=== PATIENT | female | born 1975 | race Caucasian/White ===

== ENCOUNTER 2021-11-06 13:41 | Outpatient (CLI) | payer BC, SELFPAY ==
[2021-11-06 16:47] LABS: Chloride* 102 mmol/L (96-114); Potassium* 4.9 mmol/L (3.6-5.1); Sodium* 137 mmol/L (135-149)
[2021-11-06 16:50] LABS: Blood Urea Nitrogen* 9 mg/dL (5-24); Carbon Dioxide* 26 mmol/L (20-32); Creatinine* 0.6 mg/dL (0.5-1.5); Estimated Glomerular Filt Rate 111 ml/min; Glucose* 97 mg/dL (60-115)
[2021-11-06 16:51] LABS: Calcium* 9.1 mg/dL (8.4-10.6)
[2021-11-06 17:09] LABS: Vitamin D 25 Hydroxy* 36 ng/mL (30-80)
[2021-11-06 17:27] LABS: Ferritin* 6.4 ng/mL (6.24-137.0)
== END 2021-11-06 13:42 | disposition home or self-care (01) ==
PROVIDERS: PCP Family Medicine; Visit Provider Family Medicine
DX: Z01.419 Encounter for gynecological examination (general) (routine) without abnormal findings (principal); D50.9 Iron deficiency anemia, unspecified; I42.2 Other hypertrophic cardiomyopathy; E55.9 Vitamin D deficiency, unspecified; R07.89 Other chest pain
CPT/HCPCS: 80048; 82306; 82728

== ENCOUNTER 2022-03-30 17:28 | Outpatient (CLI) | payer BC, SELFPAY ==
--- NOTE | 2022-03-30 18:00 | CRLHL7_ITS ---
For Patients: As a result of the Century Cures Act, medical imaging exams and procedure reports are released immediately into your electronic medical record. You may view this report before your referring provider. If you have questions, please contact your health care provider. BILATERAL DIGITAL SCREENING MAMMOGRAM WITH TOMOSYNTHESIS AND COMPUTER-AIDED DETECTION CLINICAL HISTORY: Routine screening exam. COMPARISON: 09/04/2027, 03/26/2014. TECHNIQUE: Digital mammogram in CC and MLO projections including computer-aided detection (CAD). Tomosynthesis utilized. BREAST COMPOSITION: There are areas of scattered fibroglandular density. FINDINGS: RIGHT Breast: No suspicious findings. LEFT Breast: Focal asymmetric density within the lower LEFT breast 5 cm from the nipple, 6 o`clock. IMPRESSION: LEFT breast asymmetry/mass. RECOMMENDATIONS: Additional mammographic views of the LEFT breast including 3D spot compression CC/MLO. LEFT breast ultrasound may also be required. BI-RADS Category 0: Incomplete: Need Additional Imaging Evaluation and/or Prior Mammograms for Comparison The [facility] will contact the patient for follow-up. A lay language report of this examination will be provided to the patient. Dictated by Brice Jackson MD @ 03/31/2022 12:41:49 PM cliftonj/Dictated by: Brice Jackson MD @ 03/31/2022 12:42:00 PM (Electronically Signed)
== END 2022-03-30 17:29 | disposition home or self-care (01) ==
LOC: MAMMO 17:28
PROVIDERS: PCP Family Medicine; Visit Provider Family Medicine
DX: Z12.31 Encounter for screening mammogram for malignant neoplasm of breast (principal); N63.20 Unspecified lump in the left breast, unspecified quadrant
CPT/HCPCS: 77063; 77067

== ENCOUNTER 2022-04-09 08:34 | Outpatient (CLI) | payer BC, SELFPAY ==
--- NOTE | 2022-04-09 08:45 | CRLHL7_ITS ---
For Patients: As a result of the Cures Act, medical imaging exams and procedure reports are released immediately into your electronic medical record. You may view this report before your referring provider. If you have questions, please contact your health care provider. DIGITAL DIAGNOSTIC LEFT MAMMOGRAM USING TOMOSYNTHESIS AND COMPUTER-AIDED DETECTION LEFT BREAST ULTRASOUND CLINICAL HISTORY: LEFT breast mass/asymmetry. COMPARISON: 03/30/2022. TECHNIQUE: Digital LEFT mammogram in two projections. Tomosynthesis and CAD utilized. Real-time ultrasound imaging of LEFT breast with imaging documentation. BREAST COMPOSITION: There are areas of scattered fibroglandular density. FINDINGS: 3D spot compression CC/MLO LEFT breast mammogram images submitted. Decreased conspicuity of previously noted asymmetric density compared to the screening examination. Postreduction mammoplasty changes are present. No architectural distortion. Targeted LEFT breast ultrasound at 6 o`clock 7 cm from the nipple performed. Mild scar tissue is present. No suspicious masses or fibrocystic changes. IMPRESSION: No evidence of malignancy. RECOMMENDATIONS: Annual BILATERAL screening mammography. Results and recommendations discussed with the patient. BI-RADS Category 2: Benign A lay language report of this examination will be provided to the patient. Dictated by Brice Jackson MD @ 04/09/2022 11:26:02 AM jj/Dictated by: Brice Jackson MD @ 04/09/2022 11:26:00 AM (Electronically Signed)
--- NOTE | 2022-04-09 09:15 | CRLHL7_ITS ---
For Patients: As a result of the Cures Act, medical imaging exams and procedure reports are released immediately into your electronic medical record. You may view this report before your referring provider. If you have questions, please contact your health care provider. PLEASE SEE DIGITAL DIAGNOSTIC LEFT MAMMOGRAM PERFORMED SAME DAY CRL:colleen macias/Dictated by: Brice Jackson MD @ 04/09/2022 11:23:00 AM (Electronically Signed)
== END 2022-04-09 08:35 | disposition home or self-care (01) ==
LOC: MAMMO 08:35
PROVIDERS: PCP Family Medicine; Visit Provider Family Medicine
DX: N63.20 Unspecified lump in the left breast, unspecified quadrant (principal); R92.8 Other abnormal and inconclusive findings on diagnostic imaging of breast
CPT/HCPCS: 76642; 77065; G0279

== ENCOUNTER 2023-02-09 09:35 | Outpatient (CLI) | payer BC, SELFPAY ==
--- NOTE | 2023-02-15 11:56 | ONC.NURNOTE ---
Dx: Iron deficiency anemia
== END 2023-02-09 09:36 | disposition home or self-care (01) ==
PROVIDERS: PCP Family Medicine; Visit Provider Family Medicine
DX: E78.2 Mixed hyperlipidemia (principal); D50.9 Iron deficiency anemia, unspecified; E55.9 Vitamin D deficiency, unspecified; R53.83 Other fatigue; N95.1 Menopausal and female climacteric states
CPT/HCPCS: 80048; 82306; 82728; 83001; 83002; 84443; 85025

== ENCOUNTER 2023-03-04 06:51 | Outpatient (CLI) | payer BC, SELFPAY ==
--- NOTE | 2023-03-04 08:35 | W.ANESCHARGE ---
Anesthesia Charges Start Date/Time Anesthesia Start Date: 03/04/23 Anesthesia Start Time: 07:55 Stop Date/Time Anesthesia Stop Date: 03/04/23 Anesthesia Stop Time: 08:31
--- NOTE | 2023-03-04 09:31 | W.ANESCHARGE ---
Anesthesia Charges Start Date/Time Anesthesia Start Date: 03/04/23 Anesthesia Start Time: 07:55 Stop Date/Time Anesthesia Stop Date: 03/04/23 Anesthesia Stop Time: 08:31
== END 2023-03-04 06:52 | disposition home or self-care (01) ==
LOC: OP CLINIC 06:53
PROVIDERS: PCP Family Medicine; Visit Provider Internal Medicine
DX: K64.8 Other hemorrhoids (principal); K59.09 Other constipation; R10.13 Epigastric pain; K21.9 Gastro-esophageal reflux disease without esophagitis; Z98.84 Bariatric surgery status; D50.9 Iron deficiency anemia, unspecified
CPT/HCPCS: 00813; 43239; 45378; 88305; J2704

== ENCOUNTER 2023-03-04 09:30 | Outpatient (RCR) | payer BC, SELFPAY ==
--- NOTE | 2023-02-16 09:47 | URNOTE ---
Request received for authorization for?Injectafer ([id number]). Prior authorization is not required per [facility], Ref# [id number] date range: 02-15-2023 to 03-29-2023.
[2023-02-23] MEDS: FERRIC CARBOXYMALTOSE 750 MG in 0.9 % SODIUM CHLORIDE 250 ml 250 ML 1060 MG IVPB (09:41)
[2023-02-23 10:03] VITALS: BP 114/72
[2023-03-04 09:32] VITALS: BP 110/72; PULSE 63; RESP 16; TEMP 35.8; O2SAT 100
[2023-03-04] MEDS: SODIUM CHLORIDE 0.9 % (FLUSH) 10 ML SYRINGE IVF (09:43)
[2023-03-04] MEDS: 0.9 % SODIUM CHLORIDE 250 ml IV (09:43)
[2023-03-04] MEDS: FERRIC CARBOXYMALTOSE 750 MG in 0.9 % SODIUM CHLORIDE 250 ml 250 ML 1060 MG IVPB (10:10)
[2023-03-04 10:27] VITALS: BP 100/67; PULSE 78; RESP 18; TEMP 36.2; O2SAT 98
[2023-03-04 10:56] VITALS: BP 116/80; PULSE 71; RESP 16; O2SAT 97
== END 2023-08-22 23:59 | disposition home or self-care (01) ==
LOC: CCIC 09:30
PROVIDERS: PCP Family Medicine; Referring Provider Family Medicine; Visit Provider Family Medicine
DX: D50.9 Iron deficiency anemia, unspecified (principal)
CPT/HCPCS: 96374; J1439; J7050

== ENCOUNTER 2023-05-14 19:43 | Emergency (ER) | payer BC, SELFPAY ==
[2023-05-14 19:50] VITALS: BP 121/79; PULSE 82; RESP 18; TEMP 36.7; O2SAT 99; BMI 29.3
--- NOTE | 2023-05-14 20:01 | ED_ITS ---
HPI - General Adult General Chief complaint: Back Injury/Pain Stated complaint: Low back pain- Time Seen by Provider: 05/14/23 19:51 Source: patient Mode of arrival: ambulatory Limitations: no limitations History of Present Illness HPI narrative: 47-year-old female coming in today complaining of low back pain going on for approximately 3-4 days. Pain is located in the right lower back and sometimes radiates across the entire lower back. Does not radiate down her legs. She denies any loss of bowel or bladder function. She denies any fevers or chills. No nausea or vomiting. She denies any injury to her back. She states that sitting lying down makes it better, any movement makes it worse. She denies difficulty urinating, no blood in her urine. No increased frequency urgency. Related Data Home Medications Medication Instructions Recorded Confirmed fluticasone propionate 50 1 spray intranasal DAILY 02/08/23 05/14/23 mcg/actuation nasal spray,suspension cyanocobalamin (vitamin B-12) 1,000 mcg IM Q2W 03/04/23 05/14/23 1,000 mcg/mL injection solution ergocalciferol (vitamin D2) 1,250 50,000 unit PO QWEEK 03/04/23 05/14/23 mcg (50,000 unit) capsule Previous Rx's Medication Instructions Recorded omeprazole 20 mg capsule,delayed 20 mg PO QDAY #30 caps 01/27/22 release sennosides 8.6 mg-docusate sodium 2 tab-cap (2 x 8.6-50 mg) PO QHS 02/11/23 50 mg tablet (Senna-S) #60 tabs bupropion HCl 300 mg 24 hr tablet, 300 mg PO QAM #30 tabs 04/12/23 extended release (Wellbutrin XL) fluoxetine 20 mg capsule (Prozac) 20 mg PO QDAY #30 caps 04/12/23 sumatriptan succinate 100 mg 50 - 100 mg (0.5 - 1 x 100 mg) PO 05/12/23 tablet (Imitrex) Q2H PRN migraine headache #10 tabs cyclobenzaprine 10 mg tablet 10 mg PO TID PRN muscle spasm #7 05/14/23 tabs methylprednisolone 4 mg tablets in See Rx Instructions PO .COMPLEX 05/14/23 a dose pack (Medrol (Carlos)) #21 ea Allergies Allergy/AdvReac Type Severity Reaction Status Date / Time benztropine Allergy Severe Hallucinati Verified 05/14/23 19:53 ng cephalexin Allergy Severe Anaphylaxis Verified 05/14/23 19:53 Penicillins Allergy Severe Hives Verified 05/14/23 19:53 Sulfa (Sulfonamide Allergy Severe tachycardia Verified 05/14/23 19:53 Antibiotics) ropinirole Allergy Intermediate emesis Verified 05/14/23 19:53 levofloxacin AdvReac Unknown Verified 05/14/23 19:53 NSAIDS (Non-Steroidal AdvReac Unknown Verified 05/14/23 19:53 Anti-Inflamma Review of Systems Status of ROS: Reports: 10 or more systems reviewed and unremarkable except as noted in History and below [facility] Medical History Major depression, recurrent ?F33.9 - Major depressive disorder, recurrent, unspecified (ICD-10) Migraine without aura ?G43.009 - Migraine without aura, not intractable, without status migrainosus (ICD-10) Vitamin D deficiency ?E55.9 - Vitamin D deficiency, unspecified (ICD-10) Severe benzodiazepine use disorder (04/28/15) ?F13.20 - Sedative, hypnotic or anxiolytic dependence, uncomplicated (ICD-10) Restless legs syndrome ?G25.81 - Restless legs syndrome (ICD-10) Polycystic ovary syndrome ?E28.2 - Polycystic ovarian syndrome (ICD-10) Obstructive sleep apnea syndrome ?G47.33 - Obstructive sleep apnea (adult) (pediatric) (ICD-10) Narcotic abuse in remission ?F11.11 - Opioid abuse, in remission (ICD-10) Mixed hyperlipidemia ?E78.2 - Mixed hyperlipidemia (ICD-10) Iron deficiency anemia ?D50.9 - Iron deficiency anemia, unspecified (ICD-10) Insomnia ?G47.00 - Insomnia, unspecified (ICD-10) Hypertrophic cardiomyopathy ?I42.2 - Other hypertrophic cardiomyopathy (ICD-10) Gastroesophageal reflux disease ?K21.9 - Gastro-esophageal reflux disease without esophagitis (ICD-10) Cobalamin deficiency ?E53.8 - Deficiency of other specified B group vitamins (ICD-10) Chronic pain syndrome ?G89.4 - Chronic pain syndrome (ICD-10) Anxiety ?F41.9 - Anxiety disorder, unspecified (ICD-10) Surgical History Status post gastric bypass for obesity (05/15/12) ?Z98.84 - Bariatric surgery status (ICD-10) 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) ?Z98.890 - Other specified postprocedural states (ICD-10) History of rectal sphincterotomy (09/25/13) ?Z98.890 - Other specified postprocedural states (ICD-10) History of nasal polypectomy (12/2006) ?Z98.890 - Other specified postprocedural states (ICD-10) ?Z87.09 - Personal history of other diseases of the respiratory system (ICD- 10) History of lithotripsy (04/18/13) ?Z98.890 - Other specified postprocedural states (ICD-10) History of dilation and curettage (07/11/18) ?Z98.890 - Other specified postprocedural states (ICD-10) History of bilateral breast reduction surgery (08/08/96) ?Z98.890 - Other specified postprocedural states (ICD-10) Family History Mother Breast cancer, Onset Age: 67 Stroke Heart disease, Onset Age: 65 Type 2 diabetes mellitus Colon polyps Father Stroke Aunt Colon polyps Social History Narrative: single, 1 daughter, non-smoker, rare EtOH, [employer] Smoking Status: Former smoker Little interest or pleasure in doing things: several days Feeling down, depressed, or hopeless: more than half the days Exam Narrative: Exam Narrative: Well-nourished well-developed patient in no acute distress. Alert and oriented. Answers questions appropriately. Mood and affect are appropriate. Thoughts are goal oriented and rational. No tangential or magical thinking noted. Patient speaks in full sentences without needing to catch her breath. HEENT: Normocephalic atraumatic. Pupils are equally round reactive to light. Extraocular muscles are intact. Conjunctivae are moist without any icterus noted. Moist mucous membranes. Back: Normal appearance. She has mild tenderness of the right-sided paraspinal musculature. No tenderness over the thoracic or lumbar spine. She can abduct from chair without difficulty. She looks uncomfortable while she is walking but she walks without significant handicap. Strength is 5/5 of the bilateral lower extremities both the flexors and extenders of the upper and lower legs. Straight leg test is negative. She has no abdominal discomfort. No CVA tenderness. Const: Vital Signs, click to edit/add: Vital Signs - 24 hr 05/14/23 19:50 Temperature 98.0 F Pulse Rate [Right Pulse Oximeter] 82 Respiratory Rate 18 Blood Pressure [Ri ght Upper Arm] 121/79 Pulse Oximetry 99 Oxygen Delivery Me thod Room Air Course Course ED Course: IM Toradol given in the ER today. Vital Signs Vital signs: Initial Vital Signs Temperature 98.0 F 05/14/23 19:50 Temperature Source Temporal Artery Scan 05/14/23 19:50 Pulse Rate 82 05/14/23 19:50 Respiratory Rate 18 05/14/23 19:50 Blood Pressure 121/79 05/14/23 19:50 Blood Pressure Mean 93 05/14/23 19:50 Blood Pressure Position Sitting 05/14/23 19:50 Pulse Oximetry 99 05/14/23 19:50 Oxygen Delivery Method Room Air 05/14/23 19:50 Vital Signs Temperature 98.0 F 05/14/23 19:50 Pulse Rate 82 05/14/23 19:50 Respiratory Rate 18 05/14/23 19:50 Blood Pressure 121/79 05/14/23 19:50 Pulse Oximetry 99 05/14/23 19:50 Oxygen Delivery Method Room Air 05/14/23 19:50 Temperature 98.0 F 05/14/23 19:50 Pulse Rate 82 05/14/23 19:50 Respiratory Rate 18 05/14/23 19:50 Blood Pressure 121/79 05/14/23 19:50 Pulse Oximetry 99 05/14/23 19:50 Oxygen Delivery Method Room Air 05/14/23 19:50 Medical Decision Making MDM Narrative Medical decision making narrative: [age] year female with low back pain. Will treat with a handful of a Flexeril tablets and Medrol Dosepak. Patient is encouraged to continue Tylenol, heat and ice as needed. Discharge Plan Discharge Clinical Impression: Low back pain Patient Disposition: Home, Self-Care Condition: Stable Additional Instructions: Continue using Tylenol as directed, okay to use heat or ice whichever feels better. Do not apply heat or ice directly to the skin. Continue moving throughout the day, recommend gentle stretching daily as well. Prescriptions: New cyclobenzaprine 10 mg tablet 10 mg PO TID PRN (Reason: muscle spasm) Qty: 7 0RF methylprednisolone [Medrol (Carlos)] 4 mg tablets,dose pack See Rx Instructions .ROUTE .COMPLEX Qty: 21 0RF Rx Instructions: orally per package directions No Action bupropion HCl [Wellbutrin XL] 300 mg tablet extended release 24 hr 300 mg PO QAM Qty: 30 1RF fluoxetine [Prozac] 20 mg capsule 20 mg PO QDAY Qty: 30 1RF omeprazole 20 mg capsule,delayed release(DR/EC) 20 mg PO QDAY Qty: 30 1RF fluticasone propionate 50 mcg/actuation spray,suspension 1 spray intranasal DAILY sennosides-docusate sodium [Senna-S] 8.6-50 mg tablet 2 tab-cap PO QHS Qty: 60 5RF cyanocobalamin (vitamin B-12) 1,000 mcg/mL solution 1,000 mcg IM Q2W Rx Instructions: Please include syringe and needle ergocalciferol (vitamin D2) 1,250 mcg (50,000 unit) capsule 50,000 unit PO QWEEK sumatriptan succinate [Imitrex] 100 mg tablet 50 - 100 mg PO Q2H MDD 200 mg PRN (Reason: migraine headache) Qty: 10 3RF Follow Up/Referrals: Brice Liu MD [Primary Care Provider] - [facility]
[2023-05-14] MEDS: KETOROLAC 30 MG/ML inj 60 MG IM (20:13)
[2023-05-14 21:19] VITALS: BP 121/79; PULSE 82; RESP 18; TEMP 36.7; O2SAT 99
== END 2023-05-14 21:19 | disposition home or self-care (01) ==
PROVIDERS: Emergency Provider Family Medicine; PCP Family Medicine
DX: M54.50 Low back pain, unspecified (principal)
CPT/HCPCS: 96372; 99283; J1885

== ENCOUNTER 2023-06-28 17:17 | Outpatient (CLI) | payer BC, SELFPAY ==
--- NOTE | 2023-06-28 17:20 | MM_ITS ---
Patient: SARAH DAMICO Facility:?[facility] Patient ID:?[id number] Site Patient ID:?[id number]. Site :?[id number] Study:?XRay-Breast Bilateral 3D W/CAD-06/28/2023 5:46:20 PM Ordering Physician:Brice Redd Final Report: BILATERAL SCREENING MAMMOGRAM WITH COMPUTER-AIDED DETECTION AND TOMOSYNTHESIS TECHNIQUE: CC and MLO views were obtained. These mammographic images have been obtained using full-field digital technique. These mammographic images were interpreted with the benefit of computer-aided detection. Breast Tomosynthesis was used in this interpretation. COMPARISON FILM: 04/09/22, 03/30/22, 09/04/19. FINDINGS: There are scattered areas of fibroglandular density. IMPRESSION: There is no radiographic evidence for malignancy. ASSESSMENT: BI-RADS Category 1: Negative RECOMMENDATION: Routine screening mammogram in 1 year. A lay language report of this examination will be provided to the patient. Brice Jackson M.D. Diagnostic Radiologist [email or web address] DSM/sp R& Transcribed: 5:20 p.m. SP/Dictated by: Brice Jackson MD @ 06/29/2023 11:27:00 AM Signed by:Minh Jackson MD @06/29/2023 6:52:36 PM (Electronic Signature)
== END 2023-06-28 17:18 | disposition home or self-care (01) ==
LOC: MAMMO 17:17
PROVIDERS: PCP Family Medicine; Visit Provider Family Medicine
DX: Z12.31 Encounter for screening mammogram for malignant neoplasm of breast (principal)
CPT/HCPCS: 77063; 77067

== ENCOUNTER 2024-01-27 10:57 | Emergency (ER) | payer BC, SELFPAY ==
[2024-01-27 11:03] VITALS: BP 128/90; PULSE 99; RESP 18; TEMP 36.2; O2SAT 99; BMI 30.3
--- NOTE | 2024-01-27 11:30 | CRLHL7_ITS ---
For Patients: As a result of the Century Cures Act, medical imaging exams and procedure reports are released immediately into your electronic medical record. You may view this report before your referring provider. If you have questions, please contact your health care provider. Indication: FALL DOWN STEPS Technique: Noncontrast axial CT of the lumbar spine with coronal and sagittal reformats are provided. Comparison: No prior studies are available for comparison at this institution. Findings: The overall stature, alignment of the lumbar spine is within normal limits. Displaced fractures of the left L1, L2, L3 and L4 transverse processes. No convincing evidence of suspicious bony fragments narrowing the central canal or neural foramina. Prevertebral and paraspinal soft are within normal limits. Vacuum disc phenomenon at T12-L1, L1-2, and L5-S1. T12-L1, L1-2, L2-3, L3-4: No significant spinal canal stenosis or neural foramen narrowing. L4-5: Mild disc bulge and left facet arthrosis. No significant spinal canal stenosis or neural foramen narrowing. L5-S1: Mild disc space narrowing. Mild disc bulge. No significant spinal canal stenosis. Moderate neural foramina narrowing bilaterally. Impression: 1. Displaced fractures of the left L1, L2, L3 and L4 transverse processes. 2. Mild scattered degenerative changes of the lumbar spine. Please note that all CT scans at this facility use dose modulation, iterative reconstruction, and/or weight-based dosing when appropriate to reduce radiation dose to as low as reasonably achievable. Dictated by Brice Quinteros MD @ 01/27/2024 12:57:29 PM (Electronically Signed)
--- NOTE | 2024-01-27 11:30 | CRLHL7_ITS ---
For Patients: As a result of the Century Cures Act, medical imaging exams and procedure reports are released immediately into your electronic medical record. You may view this report before your referring provider. If you have questions, please contact your health care provider. INDICATION: Fall. TECHNIQUE: Noncontrast CT left hip. COMPARISON: No prior. FINDINGS: There is no left proximal femoral or acetabular fracture. Cam morphology of the left proximal femur. Mild degenerative changes of the left hip. Cam morphology of the right proximal femur. Mild degenerative changes of the right hip. Os acetabuli is present on the right. Degenerative changes of the sacroiliac joints and within the lower lumbar spine. 5 centimeter cystic left adnexal structure may be better characterized with ultrasound. There is a small amount of left posterior pelvic free fluid. IMPRESSION: 1. No acute fracture. 2. Mild degenerative changes of the left hip with underlying cam morphology of the proximal femur. 3. 5 centimeter cystic left adnexal structure may be better characterized with ultrasound. Small amount of left posterior pelvic free fluid. Dictated by Tanner Castle MD @ 01/27/2024 1:01:14 PM Please note that all CT scans at this facility use dose modulation, iterative reconstruction, and/or weight-based dosing when appropriate to reduce radiation dose to as low as reasonably achievable. Dictated by: Tanner Castle MD @ 01/27/2024 13:01:26 (Electronically Signed)
--- NOTE | 2024-01-27 11:34 | CRLHL7_ITS ---
For Patients: As a result of the Century Cures Act, medical imaging exams and procedure reports are released immediately into your electronic medical record. You may view this report before your referring provider. If you have questions, please contact your health care provider. Indication: FALL DOWN STEPS Technique: Noncontrast axial CT of the cervical spine with coronal and sagittal reformats are provided. Comparison: No prior studies available for comparison at this institution. Findings: Reversal of normal cervical lordosis may be due to muscle spasm, degenerative changes, or positioning. Disc osteophyte complex and uncovertebral joint hypertrophy at C5-6 without significant spinal canal stenosis. Mild neural foramen narrowing bilaterally. Impression: 1. No convincing radiographic evidence of acute osseous injury. 2. Scattered degenerative changes of the cervical spine. Please note that all CT scans at this facility use dose modulation, iterative reconstruction, and/or weight-based dosing when appropriate to reduce radiation dose to as low as reasonably achievable. Dictated by Brice Quinteros MD @ 01/27/2024 12:51:12 PM (Electronically Signed)
--- NOTE | 2024-01-27 11:34 | CRLHL7_ITS ---
For Patients: As a result of the Century Cures Act, medical imaging exams and procedure reports are released immediately into your electronic medical record. You may view this report before your referring provider. If you have questions, please contact your health care provider. Indication: Fall down steps. Technique: CT of the head without contrast. Coronal and sagittal reformats. Bone and soft tissue windows. Comparison: No prior studies available for comparison at this institution. Findings: No acute intracranial hemorrhage or extra-axial collection. No evidence of acute cortical infarction. No mass effect or midline shift. Normal cerebral volume. The ventricles are normal in size, shape and contour. There is normal varghese and white matter differentiation. The orbital contents are normal. No calvarial fractures. No lytic or sclerotic osseous lesions within the calvarium or skull base. Scalp and other imaged soft tissue structures are normal. Mastoid air cells are clear. Paranasal sinuses are well aerated. Impression: No acute intracranial abnormality. Please note that all CT scans at this facility use dose modulation, iterative reconstruction, and/or weight-based dosing when appropriate to reduce radiation dose to as low as reasonably achievable. Dictated by Brice Quinteros MD @ 01/27/2024 12:43:25 PM (Electronically Signed)
--- NOTE | 2024-01-27 11:34 | ED.FALL ---
HPI - Fall General Date Seen: 01/27/24 Chief Complaint: Fall/Minor Trauma Stated Complaint: hip/back pain fall down stairs w/dog Time Seen by Provider: 01/27/24 11:01 Source: patient Mode of arrival: ambulatory Limitations: no limitations History of Present Illness HPI Narrative: Patient is a 48-year-old female presenting for left hip and back pain after falling down some steps. She states her dog tripped her and she fell down about 4-5 steps. States she felt like she was about seen on her butt. She states all happened so fast she does not know if she hit her head. Is denying headache or neck pain at this time. States most her pain is in her low back on the left side. Has not noticed much midline tenderness. Pain is not radiate down her leg. She states she has been able to ambulate but it is very pain for the put pressure on her left leg so she has been dragging it behind. In bed though she states she is able to move her leg although it is uncomfortable. Has not noticed any numbness of her gluteal region. Denies any numbness down her legs. No other injuries noted. Related Data Home Medications ?Medication ?Instructions ?Recorded ?Confirmed fluticasone propionate 50 1 spray intranasal DAILY 02/08/23 01/03/24 mcg/actuation nasal spray,suspension cyanocobalamin (vitamin B-12) 1,000 mcg IM Q2W 03/04/23 01/27/24 1,000 mcg/mL injection solution fluoxetine 40 mg capsule (Prozac) 40 mg PO DAILY 01/27/24 01/27/24 Previous Rx's ?Medication ?Instructions ?Recorded omeprazole 20 mg capsule,delayed 20 mg PO QDAY #30 caps 01/27/22 release sumatriptan succinate 100 mg 50 - 100 mg (0.5 - 1 x 100 mg) PO 05/12/23 tablet (Imitrex) Q2H PRN migraine headache #10 tabs fluoxetine 40 mg capsule 40 mg PO QDAY #90 caps 10/28/23 bupropion HCl 300 mg 24 hr tablet, 300 mg PO QAM #90 tabs 01/17/24 extended release (Wellbutrin XL) Allergies Allergy/AdvReac Type Severity Reaction Status Date / Time benztropine Allergy Severe Hallucinati Verified 01/27/24 11:09 ng cephalexin Allergy Severe Anaphylaxis Verified 01/27/24 11:09 Penicillins Allergy Severe Hives Verified 01/27/24 11:09 Sulfa (Sulfonamide Allergy Severe tachycardia Verified 01/27/24 11:09 Antibiotics) ropinirole Allergy Intermediate emesis Verified 01/27/24 11:09 levofloxacin AdvReac Unknown Verified 01/27/24 11:09 NSAIDS (Non-Steroidal AdvReac Unknown Verified 01/27/24 11:09 Anti-Inflamma Review of Systems Status of ROS: Reports: 10 or more systems reviewed and unremarkable except as noted in History and below [facility] Medical History Major depression, recurrent ?F33.9 - Major depressive disorder, recurrent, unspecified (ICD-10) Migraine without aura ?G43.009 - Migraine without aura, not intractable, without status migrainosus (ICD-10) Vitamin D deficiency ?E55.9 - Vitamin D deficiency, unspecified (ICD-10) Severe benzodiazepine use disorder (04/28/15) ?F13.20 - Sedative, hypnotic or anxiolytic dependence, uncomplicated (ICD-10) Restless legs syndrome ?G25.81 - Restless legs syndrome (ICD-10) Polycystic ovary syndrome ?E28.2 - Polycystic ovarian syndrome (ICD-10) Obstructive sleep apnea syndrome ?G47.33 - Obstructive sleep apnea (adult) (pediatric) (ICD-10) Narcotic abuse in remission ?F11.11 - Opioid abuse, in remission (ICD-10) Mixed hyperlipidemia ?E78.2 - Mixed hyperlipidemia (ICD-10) Iron deficiency anemia ?D50.9 - Iron deficiency anemia, unspecified (ICD-10) Insomnia ?G47.00 - Insomnia, unspecified (ICD-10) Hypertrophic cardiomyopathy ?I42.2 - Other hypertrophic cardiomyopathy (ICD-10) Gastroesophageal reflux disease ?K21.9 - Gastro-esophageal reflux disease without esophagitis (ICD-10) Cobalamin deficiency ?E53.8 - Deficiency of other specified B group vitamins (ICD-10) Chronic pain syndrome ?G89.4 - Chronic pain syndrome (ICD-10) Anxiety ?F41.9 - Anxiety disorder, unspecified (ICD-10) Surgical History Status post gastric bypass for obesity (05/15/12) ?Z98.84 - Bariatric surgery status (ICD-10) 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) ?Z98.890 - Other specified postprocedural states (ICD-10) History of rectal sphincterotomy (09/25/13) ?Z98.890 - Other specified postprocedural states (ICD-10) History of nasal polypectomy (12/2006) ?Z98.890 - Other specified postprocedural states (ICD-10) ?Z87.09 - Personal history of other diseases of the respiratory system (ICD-10) History of lithotripsy (04/18/13) ?Z98.890 - Other specified postprocedural states (ICD-10) History of dilation and curettage (07/11/18) ?Z98.890 - Other specified postprocedural states (ICD-10) History of bilateral breast reduction surgery (08/08/96) ?Z98.890 - Other specified postprocedural states (ICD-10) Family History Mother Breast cancer, Onset Age: 67 Stroke Heart disease, Onset Age: 65 Type 2 diabetes mellitus Colon polyps Father Stroke Aunt Colon polyps Social History Narrative: single, 1 daughter, non-smoker, rare EtOH, [employer] What is your current living situation?: I presently have a place to live Problems where you live: no known problems In the past 12 months, utilities in danger of being shut off: no In the past 12 mos, have been you worried that your food would run out before you had money to buy more?: never true In the past 12 mos, the food you bought just didn't last and you didn't have money to buy more?: never true Smoking Status: Former smoker How often do you have a drink containing alcohol: never AUDIT-C Alcohol total score: 0 Non-prescribed substance use: denies use How often does anyone, including family, friends and others, physically hurt you: never How often does anyone, including family, friends and others, insult or talk down to you: never How often does anyone, including family, friends and others, threaten you with harm: never How often does anyone, including family, friends and others, scream or curse at you: never Exam Narrative: Exam Narrative: Const: Well-nourished, Well-developed, in moderate distress Eyes: PERRL, no conjunctival injection, and symmetrical lids HENT: Atraumatic external nose and ears. Moist mucous membranes. Neck: Symmetric, trachea midline, No thyromegaly. CVS: RRR, No murmurs or gallops. Peripheral pulses 2+ and equal in all extremities RESP: Unlabored respiratory effort. Clear to auscultation bilaterally. GI: Nontender/Nondistended, No rebound or guarding. MSK:Extremities w/o deformity, mildly decreased active range of motion noted to left hip secondary to pain. Normal range of motion to rest of extremities. Tenderness to palpation noted to left paraspinal muscles near the top of the iliac crest Skin: Warm, Dry. No rashes or lesions. Neuro: Normal Muscle tone, No focal neurological deficits. Psych: Awake, Alert, & Oriented x3. Appropriate mood and affect. Const: Vital Signs, click to edit/add: Vital Signs - 24 hr 01/27/24 11:03 01/27/24 11:45 01/27/24 13:05 Temperature 97.2 F L 97.9 F Pulse Rate 58 L Pulse Rate [Right Pulse Oximeter] 99 66 Respiratory Rate 18 18 Blood Pressure [Le ft Upper Arm] 128/90 H 114/79 Pulse Oximetry 99 98 99 Oxygen Delivery Me thod Room Air Room Air Course Vital Signs Vital signs: Initial Vital Signs Temperature 97.2 F L 01/27/24 11:03 Temperature Source Temporal Artery Scan 01/27/24 11:03 Pulse Rate 99 01/27/24 11:03 Respiratory Rate 18 01/27/24 11:03 Blood Pressure 128/90 H 01/27/24 11:03 Blood Pressure Mean 102 01/27/24 11:03 Blood Pressure Position Sitting 01/27/24 11:03 Pulse Oximetry 99 01/27/24 11:03 Oxygen Delivery Method Room Air 01/27/24 11:03 Vital Signs Temperature 97.2 F L 01/27/24 11:03 Pulse Rate 99 01/27/24 11:03 Respiratory Rate 18 01/27/24 11:03 Blood Pressure 128/90 H 01/27/24 11:03 Pulse Oximetry 99 01/27/24 11:03 Oxygen Delivery Method Room Air 01/27/24 11:03 Temperature 97.9 F 01/27/24 13:05 Pulse Rate 66 01/27/24 13:05 Respiratory Rate 18 01/27/24 13:05 Blood Pressure 114/79 01/27/24 13:05 Pulse Oximetry 99 01/27/24 13:05 Oxygen Delivery Method Room Air 01/27/24 13:05 Medications Administered Medications: Discontinued Medications Generic Name Dose Route Start Last Admin Trade Name Thom PRN Reason Stop Dose Admin Morphine Sulfate 4 mg 01/27/24 11:30 01/27/24 11:41 Morphine 4 Mg/Ml Inj IM 01/27/24 11:31 4 mg ONCE ONE Administration Morphine Sulfate 4 mg 01/27/24 14:59 01/27/24 15:05 Morphine 4 Mg/Ml Inj IM 01/27/24 15:00 4 mg ONCE ONE Administration MDM - Fall MDM Narrative Medical decision making narrative: Patient is a 48-year-old female presenting to the emergency department after a fall. She is having no chest or abdominal pain all her pain is in her left paraspinal back. Concerned she does not know if she hit her head I will do a CT scan of her head, cervical spine, left hip, lumbar spine. Did not find it necessary to do a full chest abdomen pelvis considering all her pain is in her left low back. CT scan of the head, cervical spine, left hip showed no acute concerning abnormalities. CT scan of the lumbar spine though did show displaced transverse process fractures on the left from L1 through L4. Considering there is a fracture to the highest level shown on the lumbar CT I will also do a thoracic spine CT to make sure there are no fractures above the view seen on the lumbar CT. The thoracic spine CT shows some incidental findings but no acute fractures. I spoke to Lor on-call neurosurgeon on if this requires anything further than a back brace and pain control. He states the patient is having pain can give her a chair back brace. Otherwise pain control and it is a stable fracture. Does not require admission. I spoke to the patient about this. I offered her possible observation admission the pain is not tolerable but she does feel like she can handle the pain with the back brace that was provided. We cannot find exact brace that was recommended but did have a different style available that she could use. I spoke to her on if her pain is tolerable right now with the morphine and she states it is his she does not feel like she needs to be admitted under observation. She was able to ambulate and thinks the brace helped a lot. We were able to get her a follow-up appointment her primary care provider this upcoming 5 days away. I will prescribe her some oxycodone for back pain. I reviewed her on [facility] aware and she has not had any recent prescriptions within the past year. Due that I was comfortable giving her a larger than normal prescription for oxycodone as she would not be overly another prescription shows sooner due to not being able to see her primary care provider until . Be and giving her 20 pills 4 mg each prescribed through [facility]. I also prescribed her Toradol also through [facility]. She was discharged home at this time. States she has her mother's walker she can borrow at home and does not need a prescription for 1. Imaging Data CT scan head: Attestation: I have reviewed the pertinent imaging results. Radiologist's impression: No acute intracranial abnormality. Please note that all CT scans at this facility use dose modulation, iterative reconstruction, and/or weight-based dosing when appropriate to reduce radiation dose to as low as reasonably achievable. Dictated by Brice Quinteros MD @ 01/27/2024 12:43:[address] scan cervical spine: Attestation: I have reviewed the pertinent imaging results. Radiologist's impression: 1. No convincing radiographic evidence of acute osseous injury. 2. Scattered degenerative changes of the cervical spine. Please note that all CT scans at this facility use dose modulation, iterative reconstruction, and/or weight-based dosing when appropriate to reduce radiation dose to as low as reasonably achievable. Dictated by Brice Quinteros MD @ 01/27/2024 12:51:[address] scan thoracic spine: Attestation: I have reviewed the pertinent imaging results. Radiologist's impression: 1. No acute displaced fracture or malalignment. 2. 3.2 x 2.4 centimeters cystic lesion is seen in the posterior mediastinum near the level of the christie. 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 Outpatient MRI may be considered for further characterization. 3. Moderate hiatal hernia with associated postsurgical changes near the gastroesophageal junction and visualized stomach. Please note that all CT scans at this facility use dose modulation, iterative reconstruction, and/or weight-based dosing when appropriate to reduce radiation dose to as low as reasonably achievable. Dictated by Gurmeet Arrington MD @ 01/27/2024 2:03:[address] scan lumbar spine: Attestation: I have reviewed the pertinent imaging results. Radiologist's impression: 1. Displaced fractures of the left L1, L2, L3 and L4 transverse processes. 2. Mild scattered degenerative changes of the lumbar spine. Please note that all CT scans at this facility use dose modulation, iterative reconstruction, and/or weight-based dosing when appropriate to reduce radiation dose to as low as reasonably achievable. Dictated by Brice Quinteros MD @ 01/27/2024 12:57:[address] scan left hip: Attestation: I have reviewed the pertinent imaging results. Radiologist's impression: 1. No acute fracture. 2. Mild degenerative changes of the left hip with underlying cam morphology of the proximal femur. 3. 5 centimeter cystic left adnexal structure may be better characterized with ultrasound. Small amount of left posterior pelvic free fluid. Dictated by Tanner Castle MD @ 01/27/2024 1:01:14 PM Please note that all CT scans at this facility use dose modulation, iterative reconstruction, and/or weight-based dosing when appropriate to reduce radiation dose to as low as reasonably achievable. Dictated by: Tanner Castle MD @ 01/27/2024 13:01:26 Discharge Plan Discharge Clinical Impression: Fracture of transverse process of lumbar vertebra Qualifiers: Encounter type: initial encounter Fracture type: closed Qualified Code(s): S32.009A - Unspecified fracture of unspecified lumbar vertebra, initial encounter for closed fracture Patient Disposition: Home, Self-Care Condition: Stable Additional Instructions: Take Tylenol and Toradol for your pain as needed. If that is not working use the oxycodone. If using Toradol do not take ibuprofen or other NSAIDs at the same time. Use the back brace for support as needed for pain. Your lumbar CT scan showed fractures of the left transverse process at L1 through L4. Also showed a 5 cm adnexal structure that may be better characterized with ultrasound. Your thoracic CT scan shows a mediastinal cystic lesion that may be better characterize with outpatient MRI if warranted. Speak to your primary care provider about this. Toradol and oxycodone prescribed through [facility]. Follow up appointment scheduled at the [facility] [place] on February 02, 2024, at 11:[address] [facility] [address] [place] [address] Prescriptions: No Action fluoxetine 40 mg capsule 40 mg PO QDAY Qty: 90 1RF omeprazole 20 mg capsule,delayed release(DR/EC) 20 mg PO QDAY Qty: 30 1RF fluticasone propionate 50 mcg/actuation spray,suspension 1 spray intranasal DAILY cyanocobalamin (vitamin B-12) 1,000 mcg/mL solution 1,000 mcg IM Q2W Rx Instructions: Please include syringe and needle fluoxetine [Prozac] 40 mg capsule 40 mg PO DAILY sumatriptan succinate [Imitrex] 100 mg tablet 50 - 100 mg PO Q2H MDD 200 mg PRN (Reason: migraine headache) Qty: 10 3RF bupropion HCl [Wellbutrin XL] 300 mg tablet extended release 24 hr 300 mg PO QAM Qty: 90 0RF Follow Up/Referrals: Brice Liu MD [Primary Care Provider] - 02/02/24 11:00 am Stand Alone Forms: [facility] Info Instructions
[2024-01-27] MEDS: MORPHINE 4 MG/ML INJ IM ×2 (11:41→15:05)
[2024-01-27 11:45] VITALS: PULSE 58; O2SAT 98
[2024-01-27 13:05] VITALS: BP 114/79; PULSE 66; RESP 18; TEMP 36.6; O2SAT 99
--- NOTE | 2024-01-27 13:08 | CRLHL7_ITS ---
For Patients: As a result of the Century Cures Act, medical imaging exams and procedure reports are released immediately into your electronic medical record. You may view this report before your referring provider. If you have questions, please contact your health care provider. INDICATION: FALL TECHNIQUE: CT of the thoracic spine was performed without intravenous contrast. COMPARISON: None FINDINGS: Alignment: Normal. Vertebrae: Vertebral bodies and posterior elements are intact without acute fracture. Mild degenerative changes. Extra-vertebral soft tissues: Normal. Visualized lungs: Normal. Additional comment: Postsurgical changes from median sternotomy. 3.2 x 2.4 centimeter cystic lesion is seen in the posterior mediastinum near the level of the christie (3/46). Moderate hiatal hernia with associated postsurgical changes near the gastroesophageal junction and visualized stomach. IMPRESSION: 1. No acute displaced fracture or malalignment. 2. 3.2 x 2.4 centimeters cystic lesion is seen in the posterior mediastinum near the level of the christie. 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 Outpatient MRI may be considered for further characterization. 3. Moderate hiatal hernia with associated postsurgical changes near the gastroesophageal junction and visualized stomach. Please note that all CT scans at this facility use dose modulation, iterative reconstruction, and/or weight-based dosing when appropriate to reduce radiation dose to as low as reasonably achievable. Dictated by Gurmeet Arrington MD @ 01/27/2024 2:03:58 PM (Electronically Signed)
[2024-01-27 15:00] VITALS: BP 104/61; PULSE 63; RESP 18; TEMP 36.6; O2SAT 98
== END 2024-01-27 16:27 | disposition home or self-care (01) ==
PROVIDERS: Emergency Provider Student in an Organized Health Care Education/Training Program; PCP Family Medicine
DX: S32.019A Unspecified fracture of first lumbar vertebra, initial encounter for closed fracture (principal); S32.029A Unspecified fracture of second lumbar vertebra, initial encounter for closed fracture; S32.039A Unspecified fracture of third lumbar vertebra, initial encounter for closed fracture; S32.049A Unspecified fracture of fourth lumbar vertebra, initial encounter for closed fracture; W10.9XXA Fall (on) (from) unspecified stairs and steps, initial encounter; W01.0XXA Fall on same level from slipping, tripping and stumbling without subsequent striking against object, initial encounter
CPT/HCPCS: 70450; 72125; 72128; 72131; 73700; 96372; 99284; J2270

== ENCOUNTER 2024-03-06 10:05 | Outpatient (CLI) | payer BC, SELFPAY | END 2024-03-06 10:06 | disposition home or self-care (01) | PROVIDERS: PCP Family Medicine; Visit Provider Family Medicine | DX: E53.8 Deficiency of other specified B group vitamins (principal); E55.9 Vitamin D deficiency, unspecified; D50.9 Iron deficiency anemia, unspecified | CPT/HCPCS: 80048; 82306; 82607; 82728; 85025 ==

== ENCOUNTER 2024-10-09 13:46 | Outpatient (CLI) | payer BC, SELFPAY ==
--- NOTE | 2024-10-09 14:00 | CRLHL7_ITS ---
For Patients: As a result of the Century Cures Act, medical imaging exams and procedure reports are released immediately into your electronic medical record. You may view this report before your referring provider. If you have questions, please contact your health care provider. INDICATION: BILATERAL SCREENING MAMMOGRAM, ASYMPTOMATIC 48 Y/O FEMALE COMPARISON: 06/28/23, 03/30/22 TECHNIQUE: Digital mammogram in CC and MLO projections including computer-aided detection (CAD) and tomosynthesis. BREAST COMPOSITION: There are scattered areas of fibroglandular density. FINDINGS: No suspicious findings. ASSESSMENT: BI-RADS 1 Negative RECOMMENDATION: Annual screening mammogram. A lay language report of this examination will be provided to the patient. Dictated by: Brice Jackson MD @ 10/10/2024 09:07:16 (Electronically Signed)
== END 2024-10-09 13:47 | disposition home or self-care (01) ==
LOC: MAMMO 13:46
PROVIDERS: PCP Family Medicine; Visit Provider Family Medicine
DX: Z12.31 Encounter for screening mammogram for malignant neoplasm of breast (principal)
CPT/HCPCS: 77063; 77067

== ENCOUNTER 2024-10-18 14:41 | Outpatient (CLI) | payer BC, SELFPAY ==
--- NOTE | 2024-10-18 15:00 | CRLHL7_ITS ---
For Patients: As a result of the Century Cures Act, medical imaging exams and procedure reports are released immediately into your electronic medical record. You may view this report before your referring provider. If you have questions, please contact your health care provider. XR DXA BONE MINERAL DENSITY (BMD) Current height (in): 60.0. Weight (lb): 166.0. Menopause age: N/A . Ethnicity: White. Reason for exam: Bariatric surgery. 1. Have you had a previous hip or vertebral fracture? Yes. 2. Have you had any fractures during your adult life which did not result from significant trauma (e.g., auto accident)? Yes. 3. Did either of your parents have a hip fracture? No. 4. Do you smoke? No. 5. Have you ever taken Glucocorticoids? Yes. 6. Do you have rheumatoid arthritis? No. 7. Do you have secondary osteoporosis? No. 8. Do you drink 3 or more alcoholic drinks per day? No. 9. Are you being treated for osteoporosis? No. 10. Have you ever taken any of the following medications: Actonel, Evista, Fosamax, Miacalcin, Reclast, Boniva, Forteo, HRT (i.e. estrogen/hormone therapy), Protelos, Prolia, Vitamin D, Calcium, other ??? please specify. ANSWER: Yes, vitamin D. 11. Do you have any of the following medical conditions: Anorexia or bulimia, asthma or emphysema, end stage renal disease, hyperparathyroidism, any seizure disorders, cancer, inflammatory bowel diseases, hysterectomy, other ??? please specify. ANSWER: No. 12. What was your maximum height (inches)? 60. 13. Do you perform weight bearing exercise regularly? No. 14. Do you regularly consume dairy products? Yes. 15. Do you drink caffeinated beverages? Yes. 16. At what age did your period start? 9. 17. Are you premenopausal? No. 18. How many full-term pregnancies have you had? 1. 19. Have you ever missed your period for more than 6 months in a row (not including or menopause)? Yes. TECHNIQUE: Bone mineral density study was performed using the [employer]ane Prep. FINDINGS: The results of the study expressed as bone mineral density (BMD) are as follows: Lumbar spine L1 to L4: BMD: 0.882 g/cm2. T-score: -1.4. Z-score: -0.6 Neck Left: BMD: 0.682 g/cm2. T-score: -1.5. Z-score: -0.7 Right: BMD: 0.635 g/cm2. T-score: -1.9. Z-score: -1.1 Total Left: BMD: 0.910 g/cm2. T-score: -0.3. Z-score: 0.2 Right: BMD: 0.863 g/cm2. T-score: -0.6. Z-score: -0.1 IMPRESSION: Osteopenia. Brice Jackson M.D. Diagnostic Radiologist [email or web address] Transcribed: 9:40 am DW/Dictated by: Brice Jackson MD @ 10/22/2024 8:56:00 AM (Electronically Signed)
== END 2024-10-18 14:42 | disposition home or self-care (01) ==
PROVIDERS: PCP Family Medicine; Visit Provider Family Medicine
DX: Z98.84 Bariatric surgery status (principal); M85.89 Other specified disorders of bone density and structure, multiple sites; N95.1 Menopausal and female climacteric states; S32.009A Unspecified fracture of unspecified lumbar vertebra, initial encounter for closed fracture
CPT/HCPCS: 77080

== ENCOUNTER 2024-12-31 09:16 | Outpatient (CLI) | payer BC, SELFPAY | END 2024-12-31 09:17 | disposition home or self-care (01) | PROVIDERS: PCP Family Medicine; Visit Provider Family Medicine | DX: Z13.6 Encounter for screening for cardiovascular disorders (principal); Z98.84 Bariatric surgery status | CPT/HCPCS: 80048; 80061; 82306; 82607; 82728; 84443; 85025 ==

== ENCOUNTER 2025-02-19 15:09 | Outpatient (CLI) | payer BC, SELFPAY | END 2025-02-19 15:10 | disposition home or self-care (01) | PROVIDERS: PCP Family Medicine; Visit Provider Family Medicine | DX: M54.10 Radiculopathy, site unspecified (principal); M25.50 Pain in unspecified joint | CPT/HCPCS: 85651; 86038; 86431; 86618 ==